=== PATIENT | male | born 1985 | race Caucasian/White ===

== ENCOUNTER 2023-04-20 20:24 | Emergency (ER) | payer OTHER, SELFPAY ==
[2023-04-20 20:28] VITALS: BP 132/88
--- NOTE | 2023-04-20 21:27 | ED.GENMED ---
History of Present Illness
General
Chief Complaint: Skin Problem
Source: patient
Exam Limitations: none
Time Seen by Provider: 04/20/23 21:22
Nursing documentation reviewed up to this point in time: agreed with
Travel History
Have you had any contact with someone who has COVID-19?: No
Do you have any symptoms of coronavirus? Fever > 100 degrees, chills, cough, shortness of breath, sore throat, loss of taste or smell, muscle aches, or headache?: No
History of Present Illness
History of Present Illness:
37-year-old male presents emergency department complaining of swelling on his nose and left face earlier today. He denies any fevers or other pain. No injury.
Past History
Past History
ED Past Medical History: None
ED Past Surgical History: None
Social History
Tobacco: Non-smoker
Alcohol: Occasional
Drug: None
Review of Systems
Review of Systems
Allergies reviewed?: Yes
All Other Systems: Not applicable
Constitutional: Reports no symptoms
EENT: Reports other (Left nasal swelling pain)
Respiratory: Reports no symptoms
Cardiac: Reports no symptoms
ABD/GI: Reports no symptoms
: Reports no symptoms
Musculoskeletal: Reports no symptoms
Skin: Reports no symptoms
Neurological: Reports no symptoms
Endocrine: Reports no symptoms
Hematologic/Lymphatic: Reports no symptoms
Psychiatric: Reports no symptoms
Phy Exam
Physical Exam
Physical Exam:
Physical Exam
General: no apparent distress, not acutely ill
Neck: supple. no meningeal signs. normal posterior pharynx
Heart: equal radial pulses.
HEENT: Pupils equal round reactive to light, EOMI left nostril/left paranasal, intranasal erythema
Lungs: no acute respiratory distress.
Abdomen: nondistended
Neuro: alert and oriented. no focal neurological deficits
Skin: no rash
Psychiatric: well kept. interactive and cooperative
Extremities: no edema. good distal pulses
Course
Vital Signs
Initial and Last Documented VS:
Initial Vital Signs
Temp Pulse Resp BP Pulse Ox
98.3 F 44 16 132/88 96
04/20/23 20:28 04/20/23 20:28 04/20/23 20:28 04/20/23 20:28 04/20/23 20:28
Last Documented Vital Signs
Temp Pulse Resp BP Pulse Ox
98.3 F 44 16 132/88 96
04/20/23 20:28 04/20/23 20:28 04/20/23 20:28 04/20/23 20:28 04/20/23 20:28
MDM/Problems Addressed
Differential Diagnosis Includes:
facial cellulitis, facial abscess
MDM/Problems Addressed:
37-year-old male with left facial/nasal cellulitis. Treat with Keflex. No signs of abscess. Follow-up with primary care. Return precautions given.
*Pulse Oximetry
Patient hypoxic: no
*EKG
Interpreted by ED Provider?: NA
*New Order Clerk Interpretation
Rate: New Order Clerk- N/A
*Critical Care Note
Total Time (30-74mins, 75-104mins- exclusive of procedures): Not Applicable
Patient Management
Social determinants of health affecting care: Living situation and Strong social support
Escalation/DeEscalation of care consider admission/obs:
Admit not indicated
ED Attending Note
-
Portions of this chart may have been created with voice recognition software.� Occasional wrong word or��sound alike� substitutions may have occurred due to the inherent limitations of voice recognition software.
Discharge Plan
Departure
Patient Disposition: Home (Routine Discharge)
Date of Disposition: 04/20/23
Time of Disposition: 21:37
Patient with high blood pressure during this ER visit?: Yes
Condition: Good
Discharge Problem:
Cellulitis of face
Instructions: Cellulitis (Skin Infection), Adult (DC), BLOOD PRESSURE
Prescriptions:
New
cephalexin 500 mg capsule
500 mg PO TID 10 Days Qty: 29 0RF
Interventions
Interventions:
*Risk Screen - Suicide Last Done: 04/20/23 20:28
*General Assessment Last Done: 04/20/23 20:31
*Neglect/Abuse Screening Last Done: 04/20/23 20:28
ED-Skin Assessment Last Done: 04/20/23 21:26
[2023-04-20] MEDS: KEFLEX 500 MG PO (21:39)
== END 2023-04-20 22:00 | disposition home or self-care (01) ==
LOC: EMR 20:24
PROVIDERS: EMERGENCY PHYSICIAN Emergency Medicine
DX: L03.211 Cellulitis of face (principal); R03.0 Elevated blood-pressure reading, without diagnosis of hypertension
CPT/HCPCS: 99283